=== PATIENT | female | born 1965 | race Caucasian/White ===

== ENCOUNTER 2022-07-28 19:32 | Inpatient (IN) | payer MEDICAID ==
[~2022-07-28] VITALS: Ht 175.3 cm; Wt 76.0 kg
[2022-07-28 21:56] LABS: BASOPHILS % 0.7 % (0.0-2.0); HEMATOCRIT. 40.2 % (36.0-48.0); HEMOGLOBIN. 13.6 g/dL (12.0-16.0); LYMPHOCYTES % 23.1 % (20.0-50.0); MEAN CORPUSCULAR HEMOGLOBIN 30.3 pg (28.0-32.0); MEAN CORPUSCULAR VOLUME 89.3 fL (81.0-99.0); MEAN PLATELET VOLUME 7.4 fl (7.4-10.4); MONOCYTES % 8.7 % (2.0-8.0); NEUTROPHILS % 64.5 % (40.0-76.0); PLATELET 232 x1000/uL (130-400); RED CELL DISTRIBUTION WIDTH 13.9 % (11.6-14.6)
[2022-07-28 22:06] LABS: CHLORIDE 109 mEq/L (98-107)
[2022-07-28 22:16] LABS: PROTHROMBIN TIME 10.5 sec (9.6-11.0)
[2022-07-29 02:24] LABS: CREATINE KINASE 73 IU/L (26-192)
[2022-07-29] MEDS: SODIUM CHLORIDE 0.9% 1,000 ML IV NR ×2 (08:18→12:26)
[2022-07-29 10:48] LABS: CLARITY URINE CLEAR (CLEAR); COLOR URINE YELLOW (YELLOW); KETONES URINE NEGATIVE (NEGATIVE); LEUKOCYTE ESTERASE URINE 2+ (NEGATIVE); NITRITE URINE NEGATIVE (NEGATIVE); OCCULT BLOOD URINE TRACE (NEGATIVE); PROTEIN URINE 2+ (NEGATIVE); SPECIFIC GRAVITY URINE 1.011 (1.005-1.030); UROBILINOGEN URINE 0.2 E.U./dL (0.2-1.0)
[2022-07-29 16:05] LABS: PHOSPHORUS 3.3 mg/dL (2.5-4.9)
[2022-07-29 16:32] LABS: VITAMIN B12 SERUM 1792 pg/mL (211-911)
[2022-07-29 17:10] VITALS: BP 149/62
[2022-07-29 18:09] VITALS: BP 149/62
[2022-07-29] MEDS ORDERED: LEVO25TA7 MT (18:40)
[2022-07-29] MEDS ORDERED: RISP05 MT (18:40)
[2022-07-29] MEDS ORDERED: CLONIDINE 0.1MG TABLET PO PRN (19:00)
[2022-07-29] MEDS ORDERED: ONDANSETRON HCL 4MG/2ML INJ IV PRN (19:00)
[2022-07-29] MEDS ORDERED: IPRATROPIUM/ALBUTEROL 0.5-3(2.5)MG/3ML NEB HHN PRN (19:00)
[2022-07-29] MEDS ORDERED: LORAZEPAM 0.5MG TABLET PO PRN (19:00)
[2022-07-29] MEDS ORDERED: ACETAMINOPHEN 325MG TABLET PO PRN ×2 (19:00)
[2022-07-29] MEDS ORDERED: ALBUTEROL (0.083%) 2.5MG/3ML NEB HHN PRN (19:00)
[2022-07-29] MEDS ORDERED: HYDROCODONE/ACETAMINOPHEN 5/325MG TABLET PO PRN (19:00)
[2022-07-29] MEDS ORDERED: IPRATROPIUM BROMIDE (0.02%) 0.5MG/2.5ML NEB HHN PRN (19:00)
[2022-07-29] MEDS ORDERED: DOCUSATE SODIUM 100MG CAPSULE PO PRN (19:00)
[2022-07-29] MEDS ORDERED: NALOXONE HCL 0.4MG/ML VIAL IV PRN (19:45)
[2022-07-29 20:00] VITALS: BP 124/77
[2022-07-30] VITALS: BP_SYST 116; BP_SYST 125; BP_DIAS 54; BP_DIAS 60
[2022-07-30 04:00] VITALS: BP 126/73
[2022-07-30 07:41] LABS: EOSINOPHILS % 3.8 % (0.0-5.0); HEMOGLOBIN. 14.8 g/dL (12.0-16.0); LYMPHOCYTES % 17.2 % (20.0-50.0); MEAN CORPUSCULAR HEMOGLOBIN 31.5 pg (28.0-32.0); MEAN CORPUSCULAR VOLUME 89.3 fL (81.0-99.0); MEAN PLATELET VOLUME 7.5 fl (7.4-10.4); MONOCYTES % 11.2 % (2.0-8.0); NEUTROPHILS % 66.8 % (40.0-76.0); PLATELET 221 x1000/uL (130-400); RED BLOOD CELL COUNT 4.71 mill/uL (4.2-5.4); RED CELL DISTRIBUTION WIDTH 13.9 % (11.6-14.6)
[2022-07-30 07:45] LABS: CHLORIDE 111 mEq/L (98-107)
[2022-07-30 08:00] VITALS: BP_SYST 121; BP_SYST 125; BP_SYST 129; BP_DIAS 62; BP_DIAS 63; BP_DIAS 65
[2022-07-30 12:00] VITALS: BP 106/51
[2022-07-30 14:33] LABS: *AMPHETAMINES SCREEN URINE NEGATIVE (NEGATIVE); *BARBITURATES SCREEN URINE NEGATIVE (NEGATIVE); *BENZODIAZEPINES SCREEN URINE NEGATIVE (NEGATIVE); *COCAINE SCREEN URINE NEGATIVE (NEGATIVE); CANNABINOID URINE SCREEN NEGATIVE (NEGATIVE); METHADONE URINE SCREEN NEGATIVE (NEGATIVE); OPIATES URINE SCREEN NEGATIVE (NEGATIVE); PHENCYCLIDINE URINE SCREEN NEGATIVE (NEGATIVE)
[2022-07-30 16:00] VITALS: BP 112/58
[2022-07-30 20:00] VITALS: BP_SYST 121; BP_SYST 133; BP_DIAS 55; BP_DIAS 56
[2022-07-31] VITALS (7 sets, daily range): BP systolic 80–124; BP diastolic 36–76
[2022-07-31 07:00] LABS: BASOPHILS % 1.4 % (0.0-2.0); EOSINOPHILS % 3.3 % (0.0-5.0); HEMOGLOBIN. 14.7 g/dL (12.0-16.0); LYMPHOCYTES % 20.7 % (20.0-50.0); MEAN CORPUSCULAR HEMOGLOBIN 31.2 pg (28.0-32.0); MEAN CORPUSCULAR VOLUME 89.1 fL (81.0-99.0); MEAN PLATELET VOLUME 7.6 fl (7.4-10.4); MONOCYTES % 12.4 % (2.0-8.0); NEUTROPHILS % 62.2 % (40.0-76.0); PLATELET 220 x1000/uL (130-400); RED BLOOD CELL COUNT 4.71 mill/uL (4.2-5.4); RED CELL DISTRIBUTION WIDTH 13.8 % (11.6-14.6)
[2022-07-31 07:01] LABS: CHLORIDE 110 mEq/L (98-107)
[2022-07-31] MEDS: LEVOTHYROXINE SODIUM 25MCG TABLET PO SCH (08:28)
[2022-07-31] MEDS: RISPERIDONE 0.5MG TABLET PO SCH ×3 (08:29→16:32)
[2022-07-31] MEDS ORDERED: DOXYCYCLINE HYCLATE 100MG CAPSULE PO ONE (09:00)
[2022-07-31] MEDS: CEPHALEXIN 250MG CAPSULE PO SCH (23:00)
[2022-08-01] VITALS: BP 118/58
[2022-08-01 04:00] VITALS: BP 119/61
[2022-08-01 07:10] LABS: EOSINOPHILS % 2.9 % (0.0-5.0); HEMOGLOBIN. 14.9 g/dL (12.0-16.0); LYMPHOCYTES % 18.6 % (20.0-50.0); MEAN CORPUSCULAR HEMOGLOBIN 30.4 pg (28.0-32.0); MEAN CORPUSCULAR VOLUME 87.8 fL (81.0-99.0); MEAN PLATELET VOLUME 7.3 fl (7.4-10.4); MONOCYTES % 12.8 % (2.0-8.0); NEUTROPHILS % 64.7 % (40.0-76.0); PLATELET 209 x1000/uL (130-400)
[2022-08-01 07:11] LABS: CHLORIDE 108 mEq/L (98-107)
[2022-08-01 07:53] VITALS: BP 108/53
[2022-08-01 07:54] VITALS: BP_SYST 106; BP_SYST 114; BP_DIAS 52; BP_DIAS 61
[2022-08-01] MEDS: RISPERIDONE 0.5MG TABLET PO SCH ×2 (08:39→13:20)
[2022-08-01] MEDS: CEPHALEXIN 250MG CAPSULE PO SCH ×2 (08:39→13:20)
[2022-08-01] MEDS: LEVOTHYROXINE SODIUM 25MCG TABLET PO SCH (08:39)
[2022-08-01 11:35] VITALS: BP 117/61
[2022-08-01] MEDS ORDERED: ATOR10TA PO (12:54)
[2022-08-01] MEDS ORDERED: ATORVASTATIN CALCIUM 10MG TABLET PO SCH (21:00)
== END 2022-08-01 16:15 | disposition home or self-care (01) | DRG 200 ==
LOC: ER 19:32 → 8WST 07-29 06:31
PROVIDERS: ADMIT Family Medicine Adult Medicine; ATTEND Family Medicine Adult Medicine
DX: I35.0 Nonrheumatic aortic (valve) stenosis (principal); G90.8 Other disorders of autonomic nervous system; I50.32 Chronic diastolic (congestive) heart failure; D72.821 Monocytosis (symptomatic); G89.29 Other chronic pain; Z20.822 Contact with and (suspected) exposure to COVID-19; E78.5 Hyperlipidemia, unspecified; R07.9 Chest pain, unspecified; H91.90 Unspecified hearing loss, unspecified ear; R80.9 Proteinuria, unspecified
CPT/HCPCS: 36415; 71045; 80048; 80053; 80061; 80305; 81003; 82550; 82607; 82746; 83036; 83735; 83880; 84100; 84443; 84484; 85025; 85379; 87426; 93005; 93306; 93880; 99285